=== PATIENT | male | born 1965 | race Caucasian/White ===

== ENCOUNTER 2017-06-11 12:49 | Emergency (ER) | payer OTHER ==
[2017-06-11 13:10] VITALS: BP 151/95
[2017-06-11] MEDS ORDERED: DEXAMETHASONE 10 MG/ML VIAL PO STA (14:40)
--- NOTE | 2017-06-11 14:43 | ED Physician Documentation ---
PD HPI HEENT - Stated complaint Stated Complaint: LT EAR PX - Chief complaint Chief Complaint: Heent - History obtained from History obtained from: Patient, Family - History of Present Illness Timing - onset: How many days ago (5) Timing - duration: Days (5) Timing - details: Gradual onset, Still present Location: Left ear Improves: Medication Worsens: Everything Associated symptoms: Congestion, Rhinorrhea, Facial swelling Similar symptoms before: Diagnosis (OM) Recently seen: Not recently seen - Additional information Additional information: 51-year-old male is working in [employer] at [employer] and he is traveling here. He is developed pain in his left ear about 5 days ago and this is worsened. He has had something similar to this before with infection in the left ear. He does not have a cough. He is also developed some sores around his lip and in his synagogue on the left side. He has not had this outbreak of vesicles previously. He does describe that he is under stress. Review of Systems Constitutional: reports: Myalgias, Fatigue. denies: Fever Eyes: denies: Decreased vision Ears: reports: Ear pain Nose: reports: Rhinorrhea / runny nose, Congestion Throat: denies: Sore throat Cardiac: denies: Chest pain / pressure, Palpitations Respiratory: denies: Dyspnea, Cough GI: denies: Abdominal Pain, Nausea, Vomiting : denies: Dysuria, Frequency Skin: reports: Rash, Lesions Musculoskeletal: denies: Neck pain, Back pain, Extremity pain Neurologic: denies: Generalized weakness, Focal weakness, Numbness PD PAST MEDICAL HISTORY - Present Medications Home Medications: Ambulatory Orders Medication Instructions Recorded Confirmed Azithromycin [Zithromax] 250 mg PO DAILY #6 tablet 06/11/17 Valacyclovir HCl [Valtrex] 1,000 mg PO TID #21 tablet 06/11/17 - Allergies Allergies/Adverse Reactions: Allergies Allergy/AdvReac Type Severity Reaction Status Date / Time No Known Drug Allergies Allergy Verified 06/11/17 12:55 PD ED PE NORMAL - Vitals Vital signs reviewed: Yes - General General: Alert and oriented X 3, No acute distress, Well developed/nourished - HEENT HEENT: Atraumatic, PERRL, EOMI, Other (The left TM is obscured by cerumen. The right is erythematous with rounding of the umbo. The pharynx is benign he does have ulceration to the mucosa and he has vesicles to the left mental area and in the left synagogue consistent with zoster.) - Neck Neck: Supple, no meningeal sign, No bony TTP - Cardiac Cardiac: RRR, No murmur - Respiratory Respiratory: No respiratory distress, Clear bilaterally - Abdomen Abdomen: Soft, Non tender - Derm Derm: Normal color, Warm and dry, Other (rash on the synagogue and mental area consistent with zoster) - Extremities Extremities: No deformity, No edema - Neuro Neuro: No motor deficit, No sensory deficit Eye Opening: Spontaneous Motor: Obeys Commands Verbal: Oriented GCS Score: 15 - Psych Psych: Normal mood, Normal affect Results - Vitals Vitals: Vital Signs - 24 hr 06/11/17 12:53 Temperature 36.4 C L Heart Rate 89 Respiratory 20 Rate Blood Pressure 151/95 H O2 Saturation 96 Oxygen O2 Source Room air PD MEDICAL DECISION MAKING - ED course Complexity details: considered differential, d/w patient ED course: 51-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 Departure - Departure Disposition: 01 Home, Self Care Clinical Impression: Otitis media Qualifiers: Otitis media type: suppurative Chronicity: acute Laterality: right Recurrence: not specified as recurrent Spontaneous tympanic membrane rupture: without spontaneous rupture Qualified Code(s): H66.001 - Acute suppurative otitis media without spontaneous rupture of ear drum, right ear Shingles Qualifiers: Herpes zoster complications: without complications Qualified Code(s): B02.9 - Zoster without complications Condition: Stable Instructions: ED Otitis Media Acute Adult, ED Shingles [place] [facility] [place] [facility] [Provider Group] Prescriptions: Azithromycin [Zithromax] 250 mg PO DAILY #6 tablet Valacyclovir HCl [Valtrex] 1,000 mg PO TID #21 tablet
== END 2017-06-11 14:57 | disposition home or self-care (01) ==
LOC: ED 12:49
DX: H66.001 Acute suppurative otitis media without spontaneous rupture of ear drum, right ear (principal); B02.9 Zoster without complications
CPT/HCPCS: 99283